=== PATIENT | female | born 1945 | race Caucasian/White ===

== ENCOUNTER 2016-08-30 16:12 | Emergency (ER) | payer MEDICARE, MEDICAID ==
[2016-08-30 19:06] LABS: Hematocrit 33 % (35-47); Hemoglobin 10.8 g/dl (12.0-16.0); Mean Corpuscular HGB Conc 33 g/dl (31-36); Mean Corpuscular Hemoglobin 29 pg (27-31); Mean Corpuscular Volume 88 fL (80-97); Mean Platelet Volume 8 um3 (7.4-10.4); Red Blood Count 3.75 10^6/ul (4.0-5.4); Red Cell Distribution Width 15 % (10.5-15); White Blood Count 5.7 10^3/ul (3.5-10.8)
[2016-08-30 19:07] LABS: Urine Bacteria Absent (Absent); Urine Bilirubin Negative (Negative); Urine Glucose Negative (Negative); Urine Nitrite Negative (Negative)
[2016-08-30 19:07] LABS: Add Diff/Slide Review? Slide Review Added; Comments Flag Yes
--- NOTE | 2016-08-30 19:14 | RAD ---
Indication: Fever. Single frontal view of the chest performed at 1836 hours was reviewed. Comparison is made with previous exam dated April 16, 2016. Mediastinal shift to the right is noted. Right suprahilar mass is unchanged. Left lung field is clear. IMPRESSION: RIGHT SUPRAHILAR MASS. NO DEFINITE PNEUMONIA IS IDENTIFIED.
[2016-08-30] MEDS ORDERED: Morphine INJ* 4 MG/ML 1 ML CARPUJECT IV ONE (19:18)
[2016-08-30 19:21] LABS: ALT 14 U/L (7-52); Albumin 4.2 g/dL (3.2-5.2); Alkaline Phosphatase 84 U/L (34-104); BUN/Creatinine Ratio 19.7 (8-20); Blood Urea Nitrogen 14 mg/dL (6-24); C Reactive Protein 18.81 mg/L (< 5.00); CO2 Carbon Dioxide 31 mmol/L (22-32); Calcium 9.9 mg/dL (8.6-10.3); Chloride 100 mmol/L (101-111); Creatine Kinase 54 U/L (10-223); EGFR African American 105.3 (>60); EGFR Non-African American 81.9 (>60); Globulin 3.4 g/dL (2-4); Glucose 99 mg/dL (70-100); Lipase < 10 U/L (11.0-82.0); Magnesium 1.8 mg/dL (1.9-2.7); Sodium 138 mmol/L (133-145); Total Protein 7.6 g/dL (6.4-8.9)
[2016-08-30 19:23] LABS: AST 20 U/L (13-39); Anion Gap 7 mmol/L (2-11)
[2016-08-30 19:58] LABS: TSH (Thyroid Stimulating Horm) 0.36 mcIU/mL (0.34-5.60)
--- NOTE | 2016-08-30 20:10 | ED ---
Liliana Wilder Rebecca, scribed for Marlon Clifton MD on 08/30/16 at 1918 . Shortness of Breath - HPI Summary HPI Summary: Pt is a 70 y/o F who presents to the ED c/o SOB characterized as throat tightening s/p Opdivo treatment 5 days ago. Sx began suddenly yesterday and have been constant since onset. Pt reports feeling significantly improved since onset. Sx aggravated and alleviated by nothing. Additionally c/o right lateral CP upon exertion or coughing. Denies fever. Treatment 5 days ago was the first treatment, will receive medication every 2 weeks. She is a CA pt with stage III lung CA. Has completed chemo and radiation. Oncologist is Dr. Jurado, next appointment is 09/09. - History of Current Complaint Chief Complaint: EDShortnessOfBreath Time Seen by Provider: 08/30/16 19:08 Hx Obtained From: Patient Onset/Duration: Sudden Onset, Lasting Days - 1 day, Still Present Timing: Constant Current Severity: Mild Aggrevating Factors: Nothing Alleviating Factors: Nothing Associated Signs & Symptoms: Chest Pain w/Cough - and exertion - Allergy/Home Medications Allergies/Adverse Reactions: Allergies Allergy/AdvReac Type Severity Reaction Status Date / Time Sulfa Antibiotics Allergy Hives Verified 04/16/16 10:10 PMH/Surg Hx/FS Hx/Imm Hx Respiratory History: Reports: Hx Asthma, Hx Chronic Obstructive Pulmonary Disease (COPD), Hx Lung Cancer - stage III, Hx Pneumonia - currently Psychiatric History: Reports: Hx Anxiety - pt states "severe anxiety disorder" - Cancer History Cancer Type, Location and Year: stage III lung cancer, finished chemo and radiation Hx Chemotherapy: Yes Hx Radiation Therapy: Yes Infectious Disease History: No Infectious Disease History: Denies: Traveled Outside the [place] in Last 30 Days - Family History Known Family History: Positive: Other - mother - leukemia - Social History Alcohol Use: Occasionally Substance Use Type: Reports: None Smoking Status (MU): Former Smoker Type: Cigarettes Review of Systems Negative: Fever Positive: Chest Pain - upon cough or exertion Positive: Shortness Of Breath - characterized as throat tightening All Other Systems Reviewed And Are Negative: Yes Physical Exam Triage Information Reviewed: Yes Vital Signs On Initial Exam: Initial Vitals Temp Pulse Resp BP Pulse Ox 99.7 F 105 22 95/63 91 08/30/16 16:18 08/30/16 16:18 08/30/16 16:18 08/30/16 16:18 08/30/16 16:18 Vital Signs Reviewed: Yes Appearance: Positive: No Pain Distress, Thin Skin: Positive: Warm Eyes: Positive: MICHAEL ENT: Positive: Hearing grossly normal, Pharynx normal. Negative: Pharyngeal erythema Neck: Positive: Supple Respiratory/Lung Sounds: Positive: Clear to Auscultation Cardiovascular: Positive: RRR Abdomen Description: Positive: Nontender, Soft Bowel Sounds: Positive: Present Musculoskeletal: Positive: Strength/ROM Intact Neurological: Positive: Sensory/Motor Intact, Alert, Oriented to Person Place, Time Psychiatric: Positive: Affect/Mood Appropriate Diagnostics - Vital Signs Vital Signs Temp Pulse Resp BP Pulse Ox 08/30/16 17:35 100.7 F 98 18 104/68 94 08/30/16 16:18 99.7 F 105 22 95/63 91 - Laboratory Lab Results: Lab Results 08/30/16 08/30/16 Range/Units 18:46 18:53 WBC 5.7 (3.5-10.8) 10^3/ul RBC 3.75 L (4.0-5.4) 10^6/ul Hgb 10.8 L (12.0-16.0) g/dl Hct 33 L (35-47) % MCV 88 (80-97) fL MCH 29 (27-31) pg MCHC 33 (31-36) g/dl RDW 15 (10.5-15) % Plt Count 242 (150-450) 10^3/ul MPV 8 (7.4-10.4) um3 Neut % (Auto) 57.1 (38-83) % Lymph % (Auto) 16.0 L (25-47) % [place] % (Auto) 23.3 H (1-9) % Eos % (Auto) 3.1 (0-6) % Baso % (Auto) 0.5 (0-2) % Absolute Neuts (auto) 3.2 (1.5-7.7) 10^3/ul Absolute Lymphs (auto) 0.9 L (1.0-4.8) 10^3/ul Absolute Monos (auto) 1.3 H (0-0.8) 10^3/ul Absolute Eos (auto) 0.2 (0-0.6) 10^3/ul Absolute Basos (auto) 0 (0-0.2) 10^3/ul Absolute Nucleated RBC 0 10^3/ul Nucleated RBC % 0 Urine Color Yellow Urine Appearance Clear Urine pH 7.0 (5-9) Ur Specific [place] 1.011 (1.010-1.030) Urine Protein Negative (Negative) Urine Ketones Negative (Negative) Urine Blood Negative (Negative) Urine Nitrate Negative (Negative) Urine Bilirubin Negative (Negative) Urine Urobilinogen Negative (Negative) Ur Leukocyte Esterase 1+ H (Negative) Urine WBC (Auto) Trace(0-5/hpf) (Absent) Urine RBC (Auto) Trace(0-2/hpf) (Absent) Ur Squamous Epith Cells Present H (Absent) Urine Bacteria Absent (Absent) Urine Glucose Negative (Negative) Urine Ascorbic Acid * H (Negative) Result Diagrams: 08/30/16 18:53 08/30/16 18:53 Lab Statement: Any lab studies that have been ordered have been reviewed, and results considered in the medical decision making process. - Radiology CXR Radiology Interpretation Completed By: Radiologist - RIGHT SUPRAHILAR MASS. NO DEFINITE PNEUMONIA IS IDENTIFIED. - EKG 1648 Cardiac Rate: NL - 92 bpm EKG Rhythm: Sinus Rhythm ST Segment: Normal Re-Evaluation - Re-Evaluation First Eval Re-Evaluation Time: 20:22 - results d/w pt Change: Improved Course/Dx - Course Assessment/Plan: Pt is a 70 y/o F BIBA with a CC of SOB and mild CP s/p Opdivo treatment. Denies fever. Current stage III lung CA pt and has undergone chemo and radiation. CXR and EKG reveal no acute findings. Pt will be D/C to home with a dx of lung CA and SOB with a followup with her oncologist. - Diagnoses Provider Diagnoses: Lung cancer, Shortness of breath Discharge - Discharge Plan Condition: Stable Disposition: HOME Patient Education Materials: Dyspnea (ED) Referrals: Sammy Olivia MD [Primary Care Provider] - 3 Days (Follow up with your primary care physician in the next 3 days. ) The documentation as recorded by the Liliana serrano Rebecca accurately reflects the service I personally performed and the decisions made by , Marlon Clifton MD.
[2016-08-30 20:43] VITALS: BP 110/67
== END 2016-08-30 20:40 | disposition home or self-care (01) ==
LOC: ED 16:12
DX: C34.90 Malignant neoplasm of unspecified part of unspecified bronchus or lung (principal); R07.9 Chest pain, unspecified; R06.02 Shortness of breath; Z87.891 Personal history of nicotine dependence
CPT/HCPCS: 36415; 71010; 80053; 81003; 81015; 82550; 82553; 83605; 83690; 83735; 83880; 84443; 84484; 85025; 85379; 85610; 85730; 86140; 87086; 93005; 99283; J2270

== ENCOUNTER 2017-02-16 11:23 | Inpatient (IN) | payer MEDICARE, MEDICAID ==
[2017-02-16] MEDS ORDERED: Albuterol/Ipratropium NEB.SOL* Albuterol 2.5 MG/Ipratropium 0.5 MG 3 ML INH ONE (11:27)
[2017-02-16] MEDS ORDERED: methylPREDNISolone 125 MG* 2 ML VIAL IV ONE (11:27)
[2017-02-16] MEDS ORDERED: NS 0.9% 1000 ML* 2,000 ML IV ONE ×2 (11:29→14:34)
[2017-02-16] MEDS ORDERED: Azithromycin IV(*) 500 MG in NS 0.9% 250 ML* 250 ML IVPB ONE ×2 (11:38→13:00)
[2017-02-16] MEDS ORDERED: cefTRIAXone(*) 1 GM in NS 0.9% 50 ML* 50 ML IVPB ONE (11:38)
[2017-02-16] MEDS ORDERED: Morphine INJ* 2 MG/ML 1 ML SYRINGE IV ONE (11:48)
[2017-02-16 11:56] LABS: Comments Flag Yes; Hematocrit 24 % (35-47); Hemoglobin 7.6 g/dl (12.0-16.0); Mean Corpuscular HGB Conc 32 g/dl (31-36); Mean Corpuscular Hemoglobin 29 pg (27-31); Mean Corpuscular Volume 89 fL (80-97); Mean Platelet Volume 7 um3 (7.4-10.4); Red Blood Count 2.67 10^6/ul (4.0-5.4); Red Cell Distribution Width 23 % (10.5-15); White Blood Count 6.1 10^3/ul (3.5-10.8)
[2017-02-16 11:57] LABS: Add Diff/Slide Review? Slide Review Added
--- NOTE | 2017-02-16 11:57 | RAD ---
INDICATION: Short of breath. History of lung carcinoma COMPARISON: Chest x-ray August 30, 2016 TECHNIQUE: An AP portable view obtained at 1135 hours is submitted. FINDINGS: Bones/Soft Tissues: There are no acute bony findings. Cardiomediastinal: The heart is normal in size. The cardiac silhouette is unchanged.. Lungs: There is a right suprahilar mass with chronic pleural and parenchymal changes in right upper lobe. There is new interstitial and alveolar infiltrate in the right lung base. There is a right-sided effusion. The left lung is clear. Pleura: As above right-sided effusion. Other: None IMPRESSION: RIGHT SUPRAHILAR MASS, UNCHANGED. NEW RIGHT BASILAR INFILTRATE AND EFFUSION. SUGGEST FOLLOW-UP
[2017-02-16 12:07] LABS: ALT 30 U/L (7-52); AST 26 U/L (13-39); Albumin 2.7 g/dL (3.2-5.2); Alkaline Phosphatase 76 U/L (34-104); Anion Gap 15 mmol/L (2-11); BUN/Creatinine Ratio 18.2 (8-20); Blood Urea Nitrogen 34 mg/dL (6-24); C Reactive Protein 386.75 mg/L (< 5.00); CO2 Carbon Dioxide 22 mmol/L (22-32); Calcium 8.4 mg/dL (8.6-10.3); Chloride 93 mmol/L (101-111); Creatine Kinase 22 U/L (10-223); EGFR African American 34.3 (>60); EGFR Non-African American 26.7 (>60); Globulin 3.4 g/dL (2-4); Glucose 138 mg/dL (70-100); Lipase < 10 U/L (11.0-82.0); Magnesium 1.1 mg/dL (1.9-2.7); Potassium 3.9 mmol/L (3.5-5.0); Sodium 130 mmol/L (133-145); Total Protein 6.1 g/dL (6.4-8.9)
[2017-02-16 12:09] LABS: Troponin I 0.02 ng/mL (<0.04)
[2017-02-16 12:21] LABS: Hypochromasia 2+; Immature Granulocytes 23 % (0-9); Metamyelocytes % 2 % (0-2); Myelocytes % 2 % (0-1); Neutrophil % 57 % (38-83)
[2017-02-16 12:39] LABS: TSH (Thyroid Stimulating Horm) 0.22 mcIU/mL (0.34-5.60)
[2017-02-16] MEDS: Morphine INJ* 10 MG/ML 1 ML SYRINGE IV ONE ×2 (12:44→15:44)
[2017-02-16] MEDS ORDERED: LORazepam INJ* 2 MG/ML 1 ML VIAL IV PUSH ONE (12:45)
[2017-02-16] MEDS: Phenylephrine INJ* 50 MG in NS 0.9% 250 ML* 245 ML IV ONE ×3 (12:52→18:36)
[2017-02-16] MEDS: NS 0.9% 1000 ML* 2,000 ML IV ONE ×2 (12:56→13:56)
[2017-02-16] MEDS ORDERED: Acetaminophen TAB* 325 MG PO PRN (13:54)
--- NOTE | 2017-02-16 13:54 | HP ---
H&P (Free Text) History and Physical: CRITICAL CARE MEDICINE DATE: 02/16/17 TIME: 1200 PRIMARY CARE PROVIDER: Dr. Pacheco (Oncology in [place]) REFERRING PROVIDER: Vilma REASON/CHIEF COMPLAINT: sob HISTORY OF PRESENT ILLNESS: 71 F with at least stage 3 lung ca with admission a year ago for cap and presenting today as she was due for chemotx today (last 2 weeks prior) but over last few days was having inc sob. Wears O2 at home and was using more then usual. inc sputum. Today her granddaughter came to get her for chemo and pt states she was weak and her legs gave out. Hit the back of her head with a fall. No loc. came into Ed with low bp, tachypenia, tachycardia. Placed on bipap and ICU alerted. REVIEW OF SYSTEMS: As per HPI. dec po intake preparing for chemotx PAST MEDICAL HISTORY: As per HPI. afib. copd. lung ca with chemo and xrt MEDICATIONS: Reviewed but unconfirmed. ALLERGIES: sulfa SOCIAL HISTORY: Reviewed. granddaughter here is her proxy. FAMILY HISTORY: Noncontributory at present. PHYSICAL EXAM: Vital Signs: Reviewed. Hr 140s ST, SBP ~80s. RR up top 40s. sats 100% on 100%. Neurologic: awake, nonfocal. head tremor she states HEENT: anciteric, perrl, mm dry Cardiovascular: tachy no m appreciated Respiratory: rhonchi b/l but more dec on right base Abdomen: soft, accessory muscle use Extremities: cold, mottling at knees Access: piv LABS: Reviewed. IMAGING: Reviewed. CXR with early dense starting infiltrates in RLL, known R hilar mass and increased R effusion from baseline MEDICATIONS: Reviewed. ASSESSMENT: 71 F Community acquired pneumonia more likely, but meets criteria for HCAP Septic shock sec to above Acute on chronic hypoxic respiratory failure sec to above Acute kidney injury sec to above Lactic acidosis sec to above PLAN: Neurologic: she holds capcity and is clear about DNR/DNI but we agree on aggressive tx and NIV for now. Explained the need for sedation to dec O2 consumption. She expresses understanding. Has anxiety disorder as well. Start with morphine and add ativan. May need morphine gtt. Cardiovascular: High metabolic demands inhibiting perfusion delivery and intravascular and interstitially dry. 4L NS and re-eval. Needs optivolemic fluids in order not to overload lung water interstitial with transudation fluid. Her degree of exudative however may already be in high abundance. Hr demand sec to CO/O2 demands and vol depletion. Respiratory: Needs bipap for at least majority of the day and likely into tomorrow if we have a chance at beating this. Poor known reserve already on home O2 is a set up for poor prognosis. Lungs are certainly going to get worse before beater and I explained such to the pt. Gastrointestinal: npo. sup. Renal/Metabolic: MANDA but hopefully tolerable if we can meet her end points of perfusion. She declines francisco as of yet, but did explain the use of rx that may cause ailments there and may need later on. can f/u LA clearance. Infectious Disease: given C3 and azithro, which is probably adequate, but given acuity, history and recent chemotx visits would give vancomycin now as well and f/u needs. BC done in ED. Hematology: counts down post chemo last week and likely to dilute more. No benefit of transfusion just yet but will likely need if we can get her through this. Has significant bands and marrow response but mature neutrophils may have already been sequestered at the lung. Endocrine: given solumedrol in ED and given shock and process, empiric stress dose hydrocortisone continued. Musculoskeletal: bedrest currently. Psych/Social: d/w pts granddaughters, 1 of which is proxy. Their mother, pts daughter, is visiting [place] right now. We reviewed CXR and discussed plans of care. Pt already clear about DNR, DNI. We discussed her high risk for mortality. They expressed understanding and support pt. Supportive and preventative care as ordered. Vaccine: f/u SUP: H2 VTE prophylaxis: heparin Disposition: ICU, critical Code Status: Full Critical Care Time: 65min Quinton Meyer DO
[2017-02-16] MEDS ORDERED: Ondansetron INJ* 2 MG/ML VIAL IV PRN (13:55)
[2017-02-16] MEDS ORDERED: Morphine INJ* 4 MG/ML 1 ML SYRINGE IV PRN (13:55)
[2017-02-16] MEDS ORDERED: LORazepam INJ* 2 MG/ML 1 ML VIAL IV PUSH PRN ×2 (13:56→15:52)
[2017-02-16] MEDS ORDERED: Albuterol/Ipratropium NEB.SOL* Albuterol 2.5 MG/Ipratropium 0.5 MG 3 ML INH PRN (13:57)
[2017-02-16] MEDS ORDERED: Vancomycin(*) 750 MG in NS 0.9% 250 ML* 250 ML IVPB ONE (14:00)
[2017-02-16] MEDS ORDERED: Heparin VIAL(*) 5000 UNITS/ML VIAL (FIVE THOUSAND) SUBCUT SCH (14:00)
[2017-02-16] MEDS ORDERED: Hydrocortisone INJ* 100 MG VIAL IV SCH (14:00)
[2017-02-16] MEDS ORDERED: NS 0.9% w/ 20 Meq KCL 1000 ML* 1,000 ML IV SCH (14:00)
[2017-02-16] MEDS ORDERED: Vancomycin(*) 1,000 MG VIAL IVPB ONE (14:00)
[2017-02-16] MEDS: Albuterol/Ipratropium NEB.SOL* Albuterol 2.5 MG/Ipratropium 0.5 MG 3 ML INH SCH ×2 (14:15→19:50)
[2017-02-16] MEDS ORDERED: Magnesium Sulf 4 GM/100 ML IV* 4,000 MG/100 ML BAG IVPB ONE (14:30)
[2017-02-16] MEDS ORDERED: NS 0.9% 1000 ML* 1,000 ML IVPB SCH (14:39)
[2017-02-16] MEDS ORDERED: Morphine PCA ADULT* 5 MG/ML 30 ML PCA SCH ×2 (15:00→16:05)
[2017-02-16] MEDS ORDERED: Morphine INJ* 10 MG/ML 1 ML SYRINGE ONE (15:42)
[2017-02-16] MEDS ORDERED: Morphine INJ* 10 MG/ML 1 ML SYRINGE IV ONE (15:52)
--- NOTE | 2017-02-16 16:04 | PN ---
Progress Note - Progress Note Date of Service: 02/16/17 Note: CRITICAL CARE MEDICINE DATE: 02/16/17 TIME: 1600 Pt failing. D/w pts katie. Explained pts inability to overcome her shock state. Hr still tachy, rr still high and losing compliance, rivas increasing requirement, no francisco but bladder same with low uout and central cyanosis apparent; need to continue to error on making her comfortable. Further family are trying to get here and we continue to support. They understand the support and comfort needs. Explained we would cap the rivas at 200mcg/min and not greatly escalate care as she is not going to overcome. They expressed appreciation. Disposition: ICU, critical Code Status: Full Critical Care Time: 15min Quinton Meyer,
[2017-02-16] MEDS ORDERED: Vancomycin per Pharmacy* NOTE FOLLOW UP PRN (16:11)
[2017-02-16] MEDS ORDERED: Morphine PCA ADULT* 5 MG/ML 30 ML ONE (16:34)
--- NOTE | 2017-02-16 17:33 | ED ---
Trino Wilder Benjamin, scribed for Gaurav Esparza MD on 02/16/17 at 1139 . Shortness of Breath - HPI Summary HPI Summary: 71yo female BIBA for respiratory distress. Pt had a chemo therapy appointment this morning and when pts granddaughter came into get her ready for the appointment. Pt was c/o dizziness and not feeling well at first and as they were getting ready pt got increasingly SOB. pt also fell and hit the back of her head, also had bowel incontinence episode upon her fall. Pt has hx of lung CA and COPD. When asked, pt admits feeling like COPD exacerbation. PMHx of PNA as well. Per family, pt described todays episode like her previous PNA. Pt is on 2L Oxygen at home. - History of Current Complaint Hx Obtained From: Family/Mainframe Architect, EMS Hx From Patient Unobtainable Due To: Other - LEVEL 5 CAVEAT - Severe respiratory distress Onset/Duration: Lasting Hours, Still Present Timing: Constant Current Severity: Severe Dyspnea At: Rest Aggrevating Factors: Nothing Alleviating Factors: EMS Tx, Oxygen Associated Signs & Symptoms: Wheezing - Allergy/Home Medications Allergies/Adverse Reactions: Allergies Allergy/AdvReac Type Severity Reaction Status Date / Time Sulfa Antibiotics Allergy Hives Verified 02/16/17 12:14 PMH/Surg Hx/FS Hx/Imm Hx Respiratory History: Reports: Hx Asthma, Hx Chronic Obstructive Pulmonary Disease (COPD), Hx Lung Cancer - stage III, Hx Pneumonia - currently Psychiatric History: Reports: Hx Anxiety - pt states "severe anxiety disorder" - Cancer History Cancer Type, Location and Year: stage III lung cancer, finished chemo and radiation Hx Chemotherapy: Yes Hx Radiation Therapy: Yes - Family History Known Family History: Positive: Other - mother - leukemia - Social History Occupation: Retired Lives: Alone Alcohol Use: Occasionally Substance Use Type: Reports: None Smoking Status (MU): Former Smoker Type: Cigarettes Review of Systems - ROS Summary Review of Systems Summary: LEVEL 5 CAVEAT - Severe respiratory distress Positive: Chest Pain Positive: Shortness Of Breath - Severe respiratory distress All Other Systems Reviewed And Are Negative: No Physical Exam Vital Signs On Initial Exam: Initial Vitals Pulse Pulse Ox 132 98 02/16/17 11:35 02/16/17 11:35 Completion Of Physical Exam Limited Due To: Level 5 - Severe respiratory distress Appearance: Positive: Well-Nourished, Ill-Appearing, Pain Distress - Severe respiratory distress Skin: Positive: Warm, Skin Color Reflects Adequate Perfusion, Dry Head/Face: Positive: Normal Head/Face Inspection Eyes: Positive: EOMI, MICHAEL ENT: Positive: Normal ENT inspection, Hearing grossly normal Neck: Positive: Supple, Nontender Respiratory/Lung Sounds: Positive: Rhonchi - Poor air movement. Bialteral rhonchi and wheezing., Wheezes - Poor air movement. Bialteral rhonchi and wheezing., Other - Poor air movement. Bialteral rhonchi and wheezing. Cardiovascular: Positive: Pulses are Symmetrical in both Upper and Lower Extremities, Tachycardia. Negative: Leg Edema Left, Leg Edema Right Abdomen Description: Positive: Nontender, Soft Bowel Sounds: Positive: Hypoactive Musculoskeletal: Positive: Strength/ROM Intact. Negative: Edema Left, Edema Right Neurological: Positive: Sensory/Motor Intact, Alert, Oriented to Person Place, Time Psychiatric: Positive: Affect/Mood Appropriate - Central Coma Scale Best Eye Response: 4 - Spontaneous Best Motor Response: 6 - Obeys Commands Best Verbal Response: 4 - Confused Glascow Coma Scale Comments: 14 Diagnostics - Vital Signs Vital Signs Pulse Resp BP Pulse Ox 02/16/17 11:45 132 33 89/48 100 02/16/17 11:37 94/49 02/16/17 11:35 126 98 - Laboratory Lab Results: Lab Results 02/16/17 02/16/17 02/16/17 Range/Units 11:30 11:30 11:30 WBC (3.5-10.8) 10^3/ul RBC (4.0-5.4) 10^6/ul Hgb (12.0-16.0) g/dl Hct (35-47) % MCV (80-97) fL MCH (27-31) pg MCHC (31-36) g/dl RDW (10.5-15) % Plt Count (150-450) 10^3/ul MPV (7.4-10.4) um3 Immature Gran % (Auto) (0-9) % Neut % (Auto) (38-83) % Lymph % (Auto) (25-47) % [place] % (Auto) (1-9) % Eos % (Auto) (0-6) % Baso % (Auto) (0-2) % Absolute Neuts (auto) (1.5-7.7) 10^3/ul Absolute Lymphs (auto) (1.0-4.8) 10^3/ul Absolute Monos (auto) (0-0.8) 10^3/ul Absolute Eos (auto) (0-0.6) 10^3/ul Absolute Basos (auto) (0-0.2) 10^3/ul Absolute Nucleated RBC 10^3/ul Neutrophils % (38-83) % Band Neutrophils % (0-8) % Lymphocytes % (25-47) % Monocytes % (0-13) % Metamyelocytes % (0-2) % Myelocytes % (0-1) % Nucleated RBC % Nucleated RBCs/100 WBC (0-0) Normal RBC Morphology Hypochromasia INR (Anticoag Therapy) 1.29 H (0.89-1.11) APTT 26.0 (26.0-36.3) seconds D-Dimer, Quantitative 1033 H (Less Than 230) ng/mL Sodium 130 L (133-145) mmol/L Potassium 3.9 (3.5-5.0) mmol/L Chloride 93 L (101-111) mmol/L Carbon Dioxide 22 (22-32) mmol/L Anion Gap 15 H (2-11) mmol/L BUN 34 H (6-24) mg/dL Creatinine 1.87 H (0.51-0.95) mg/dL Est GFR ( Amer) 34.3 (>60) Est GFR (Non-Af Amer) 26.7 (>60) BUN/Creatinine Ratio 18.2 (8-20) Glucose 138 H (70-100) mg/dL Lactic Acid (0.5-2.0) mmol/L Calcium 8.4 L (8.6-10.3) mg/dL Magnesium 1.1 L (1.9-2.7) mg/dL Total Bilirubin 0.60 (0.2-1.0) mg/dL AST 26 (13-39) U/L ALT 30 (7-52) U/L Alkaline Phosphatase 76 (34-104) U/L Total Creatine Kinase 22 (10-223) U/L CK-MB (CK-2) 1.2 (0.6-6.3) ng/mL Troponin I 0.02 (<0.04) ng/mL C-Reactive Protein 386.75 H (< 5.00) mg/L B-Natriuretic Peptide 315 H ( - 100) pg/mL Total Protein 6.1 L (6.4-8.9) g/dL Albumin 2.7 L (3.2-5.2) g/dL Globulin 3.4 (2-4) g/dL Albumin/Globulin Ratio 0.8 L (1-3) Lipase < 10 L (11.0-82.0) U/L TSH 0.22 L (0.34-5.60) mcIU/mL 02/16/17 02/16/17 Range/Units 11:30 11:30 WBC 6.1 (3.5-10.8) 10^3/ul RBC 2.67 L (4.0-5.4) 10^6/ul Hgb 7.6 L (12.0-16.0) g/dl Hct 24 L (35-47) % MCV 89 (80-97) fL MCH 29 (27-31) pg MCHC 32 (31-36) g/dl RDW 23 H (10.5-15) % Plt Count 126 L (150-450) 10^3/ul MPV 7 L (7.4-10.4) um3 Immature Gran % (Auto) 23 H (0-9) % Neut % (Auto) 88.0 H (38-83) % Lymph % (Auto) 7.0 L (25-47) % [place] % (Auto) 4.9 (1-9) % Eos % (Auto) 0 (0-6) % Baso % (Auto) 0.1 (0-2) % Absolute Neuts (auto) 5.3 (1.5-7.7) 10^3/ul Absolute Lymphs (auto) 0.4 L (1.0-4.8) 10^3/ul Absolute Monos (auto) 0.3 (0-0.8) 10^3/ul Absolute Eos (auto) 0 (0-0.6) 10^3/ul Absolute Basos (auto) 0 (0-0.2) 10^3/ul Absolute Nucleated RBC 0.02 10^3/ul Neutrophils % 57 (38-83) % Band Neutrophils % 19 H (0-8) % Lymphocytes % 8 L (25-47) % Monocytes % 12 (0-13) % Metamyelocytes % 2 (0-2) % Myelocytes % 2 H (0-1) % Nucleated RBC % 0.3 Nucleated RBCs/100 WBC 1 H (0-0) Normal RBC Morphology Not Reportable Hypochromasia 2+ INR (Anticoag Therapy) (0.89-1.11) APTT (26.0-36.3) seconds D-Dimer, Quantitative (Less Than 230) ng/mL Sodium (133-145) mmol/L Potassium (3.5-5.0) mmol/L Chloride (101-111) mmol/L Carbon Dioxide (22-32) mmol/L Anion Gap (2-11) mmol/L BUN (6-24) mg/dL Creatinine (0.51-0.95) mg/dL Est GFR ( Amer) (>60) Est GFR (Non-Af Amer) (>60) BUN/Creatinine Ratio (8-20) Glucose (70-100) mg/dL Lactic Acid 4.4 H* (0.5-2.0) mmol/L Calcium (8.6-10.3) mg/dL Magnesium (1.9-2.7) mg/dL Total Bilirubin (0.2-1.0) mg/dL AST (13-39) U/L ALT (7-52) U/L Alkaline Phosphatase (34-104) U/L Total Creatine Kinase (10-223) U/L CK-MB (CK-2) (0.6-6.3) ng/mL Troponin I (<0.04) ng/mL C-Reactive Protein (< 5.00) mg/L B-Natriuretic Peptide ( - 100) pg/mL Total Protein (6.4-8.9) g/dL Albumin (3.2-5.2) g/dL Globulin (2-4) g/dL Albumin/Globulin Ratio (1-3) Lipase (11.0-82.0) U/L TSH (0.34-5.60) mcIU/mL Result Diagrams: 02/16/17 11:30 02/16/17 11:30 Lab Statement: Any lab studies that have been ordered have been reviewed, and results considered in the medical decision making process. - Radiology CXR Xray Interpretation: Positive (See Comments) - IMPRESSION: RIGHT SUPRAHILAR MASS, UNCHANGED. NEW RIGHT BASILAR INFILTRATE AND EFFUSION. SUGGEST FOLLOW-UP Radiology Interpretation Completed By: Radiologist - ED physician has reviewed this radiology report and agrees. Course/Dx - Course Course Of Treatment: Reviewed pts medication and allergy lists. Blood pressure noted. Dr. Wren (ICU) called at 11:30. He will come down to check the pt. DR WREN SAW PATIENT IN ED. ADMIT TO ICU. - Diagnoses Provider Diagnoses: Pneumonia, COPD (chronic obstructive pulmonary disease), Hypoxia - Critical Care Time Critical Care Time: 30-74 min Discharge - Discharge Plan Condition: Fair Disposition: ADMITTED TO [facility] The documentation as recorded by the Trino serrano Benjamin accurately reflects the service I personally performed and the decisions made by me, Gaurav Esparza MD.
[2017-02-16 18:28] VITALS: BP 60/30
[2017-02-16] MEDS ORDERED: Phenylephrine INJ* 10 MG/ML 1 ML VIAL (10 MG) ONE ×2 (18:33→18:34)
--- NOTE | 2017-02-16 20:33 | DS ---
CRITICAL CARE MEDICINE DISCHARGE SUMMARY ADMISSION DATE: 02/16/2017 ICU ADMISSION DATE: 02/16/2017 ICU DISCHARGE DATE: 02/16/2017 REFERRING PHYSICIAN: Dr. Esparza. DIAGNOSIS: 1. Health care associated pneumonia. 2. Septic shock. 3. Acute on chronic hypoxic respiratory failure. 4. Acute kidney injury with component of acute tubular necrosis. 5. Lactic acidosis. 6. Lung carcinoma. MEDICATIONS AT DISCHARGE: None. HOSPITAL COURSE: 71 year old female admitted from home with shortness of breath and sepsis. History of lung cancer with scheduled chemotherapy today but patient too weak and short of breath presenting to emergency room with respiratory failure and hypotention. Large right lower lobe infiltrative pneumonia and septic shock. Treated with fluids, antibiotics, bipap and further aggressive therapies but patient clear about wishes against intubation and was a do not resuscitate. She was admitted to the intensive care unit with aggressive care but efforts were to no avail. Family aware throughout her process and patient maintaining as comfortable as possible throughout but with knowledge of likely demise. Patient passed in the evening. DISPOSITION: . Quinton Meyer DO
[2017-02-17] MEDS ORDERED: Vancomycin(*) 750 MG in NS 0.9% 250 ML* 250 ML IVPB SCH (03:00)
[2017-02-17] MEDS ORDERED: cefTRIAXone VIAL(*) 1,000 MG in NS 0.9% 50 ML* 50 ML IVPB SCH (11:30)
[2017-02-17] MEDS ORDERED: Azithromycin IV(*) 500 MG in NS 0.9% 250 ML* 250 ML IVPB SCH (12:00)
[2017-02-18] MEDS ORDERED: Vancomycin Trough Check NOTE FOLLOW UP ONE (14:30)
== END 2017-02-16 19:28 | disposition expired | DRG 871 ==
LOC: ED 11:23 → ICU 11:49
PROVIDERS: ADMIT Internal Medicine Critical Care Medicine; ATTEND Internal Medicine Critical Care Medicine
PROC: 02HV33Z Insertion of Infusion Device into Superior Vena Cava, Percutaneous Approach (ICD-10-PCS; principal; 2017-02-16)
PROC: 5A09357 Assistance with Respiratory Ventilation, Less than 24 Consecutive Hours, Continuous Positive Airway Pressure (ICD-10-PCS; 2017-02-16)
DX: A41.9 Sepsis, unspecified organism (principal); J96.21 Acute and chronic respiratory failure with hypoxia; N17.0 Acute kidney failure with tubular necrosis; R65.21 Severe sepsis with septic shock; E87.2 Acidosis; J18.8 Other pneumonia, unspecified organism; C34.90 Malignant neoplasm of unspecified part of unspecified bronchus or lung; I95.9 Hypotension, unspecified; Z66 Do not resuscitate; Z88.2 Allergy status to sulfonamides; F41.9 Anxiety disorder, unspecified; Z99.81 Dependence on supplemental oxygen
CPT/HCPCS: 36415; 71010; 80053; 82550; 82553; 83605; 83690; 83735; 83880; 84443; 84484; 85025; 85379; 85610; 85730; 86140; 86850; 86900; 86901; 86922; 87040; 94640; 94760; A9270-GY; J0456; J0696; J1644; J1720; J2060; J2270; J2930; J3370; J3475